=== PATIENT | male | born 1970 ===

== ENCOUNTER 2017-09-24 08:51 | Day surgery (SDC) | payer BC ==
--- NOTE | 2017-09-20 17:46 | Pre-op HX & Phy Repo 2 SIG ---
DATE OF ADMISSION: 09/24/2017 DATE OF SURGERY: 09/24/2017. CHIEF COMPLAINT: Lump in the umbilicus. HISTORY OF PRESENT ILLNESS: This is a 47-year-old male who presented with a lump in the umbilicus for about 4 years. He stated that the lump has gradually enlarged and he complains of occasional discomfort. He stated that the lump is present off and on. PAST MEDICAL HISTORY: he denied allergies, asthma, diabetes, hypertension, cardiac and renal diseases. PAST SURGICAL HISTORY: None. MEDICATIONS: He takes Soma on p.r.n. basis. SOCIAL HISTORY: The patient is a 47-year-old male who is single and father of two children. 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 He denies smoking, but drinks occasionally. REVIEW OF SYSTEMS: Besides the lump of the umbilicus, he complains of back pain. PHYSICAL EXAMINATION: GENERAL: The patient appeared to be a well-developed, well-nourished, 47-year-old male, in no acute distress. VITAL SIGNS: Blood pressure 148/102 and pulse rate 81. HEENT: Head is normocephalic and atraumatic. Eyes, pupils are equal, round, and reactive to light. Mouth is clear. NECK: There is no palpable thyromegaly or adenopathy. CHEST: Clear to auscultation and percussion. HEART: There is no gallop or murmur. S1 and S2 are within normal limits. ABDOMEN: Soft and flat. There is no palpable organomegaly and bowel sounds are audible. He has a partially reducible umbilical hernia of a size of walnut. GENITAL: Deferred. EXTREMITIES: Within normal limits. ASSESSMENT: Incarcerated umbilical hernia. PLAN: The patient has been scheduled for a umbilical herniorrhaphy on 09/24/2017 and the risks and benefits have been explained to him. He understood and granted consent. Batsheva Hoskins M.D. DR: MAUREEN JOB#: [id number] CC: HAYLIE
[~2017-09-24] VITALS: Ht 177.8 cm; Wt 93.0 kg
[2017-09-24] VITALS (11 sets, daily range): BP systolic 130–148; BP diastolic 81–94
[~2017-09-24 08:51] MED LIST: ceFAZolin sod 1 GM in NS 55 ML IVPB ONE
[2017-09-24] MEDS ORDERED: SOMA350 MG PO (09:36)
[2017-09-24] MEDS ORDERED: LR 1000ml ONE (12:00)
[2017-09-24] MEDS ORDERED: Sterile Water Irrig 1000ml IRRIG ONE (12:00)
[2017-09-24] MEDS ORDERED: NS Irrig 1000ml ONE (12:00)
[2017-09-24] MEDS ORDERED: Bupivacaine 0.25% Inj 30ml INJ ONE ×2 (12:05→12:45)
--- NOTE | 2017-09-24 12:06 | Pre-Procedure Note/Attestation ---
Pre-Procedure Note/Attestation Complete Prior to Procedure Planned Procedure: not applicable Procedure Narrative: umbilical herniorrhaphy Indications for Procedure Pre-Operative Diagnosis: umbilical hernia Attestation I attest that I discussed the nature of the procedure; its benefits; risks and complications; and alternatives (and the risks and benefits of such alternatives ), prior to the procedure, with the patient (or the patient's legal food service sales representatives). I attest that, if there was a reasonable possibility of needing a blood transfusion, the patient (or the patient's legal food service sales representatives) was given the [facility] standardized written summary, pursuant to the Panchito Radha Blood Safety Act ([place] Health and Safety Code # 1645, as amended). I attest that I re-evaluated the patient just prior to the surgery and that there has been no change in the patient's H&P, except as documented below: Batsheva Hoskins MD Sep 24, 2017 12:06
[2017-09-24] MEDS ORDERED: Midazolam 2mg/2ml Inj ONE (12:15)
[2017-09-24] MEDS ORDERED: Lidocaine 1% MPF 10mg/ml 5ml ONE (12:16)
[2017-09-24] MEDS ORDERED: Propofol 200mg/20ml IV ONE (12:16)
[2017-09-24] MEDS ORDERED: fentaNYL 100 mcg/2 mL IV ONE (12:16)
[2017-09-24] MEDS ORDERED: LR 1000ml 1,000 ML IVLG SCH (12:48)
--- NOTE | 2017-09-24 12:54 | Anethesia Preoperative Eval ---
Anesthesia Pre-op PMH/ROS General Date of Evaluation: Sep 24, 2017 Time of Evaluation: 12:10 Anesthesiologist: chyna ASA Score: ASA 2 Mallampati Score Class I : Soft palate, uvula, fauces, pillars visible Class II: Soft palate, uvula, fauces visible Class III: Soft palate, base of uvula visible Class IV: Only hard plate visible Mallampati Classification: Class II Surgeon: Aidee Diagnosis: Umbilical hernia Surgical Procedure: Umbelical herniorrhaphy Allergies: Coded Allergies: No Known Allergies (Unverified , 09/24/17) Past Medical History Cardiovascular: Reports: HTN; Denies: CAD, OK, valve dz, arrhythmia, other Pulmonary: Denies: asthma, COPD, SALO, other Gastrointestinal/Genitourinary: Denies: GERD, CRI, ESRD, other Neurologic/Psychiatric: Denies: dementia, CVA, depression/anxiety, TIA, other Endocrine: Denies: DM, hypothyroidism, steroids, other HEENT: Denies: cataract (L), cataract (R), glaucoma, TUNUNAK (L), TUNUNAK (R), other Hematology/Immune: Denies: anemia, DVT, bleeding disorder, other Musculoskeletal/Integumentary: Denies: OA, RA, DJD, DDD, edema, other PMH Narrative: HTN (currently untreated) PSxH Narrative: Denies Anesthesia Pre-op Phys. Exam Physician Exam Last Vital Signs Date Time Temp Pulse Resp B/P (MAP) Pulse Ox O2 Delivery O2 Flow Rate FiO2 09/24/17 09:28 97.6 80 18 135/92 (106) 96 97.6 09/24/17 09:28 Room Air Constitutional: NAD Neurologic: CN 2-12 intact Cardiovascular: RRR, no M/R/G Respiratory: CTA Gastrointestinal: S/NT/ND Airway Exam Mallampati Score: Class II MO: full ROM: full Teeth: intact Anesthesia Pre-op A/P Risk Assessment & Plan Assessment: Hypertensive male for umbilical hernia repair Plan: GA, LMA Status Change Before Surgery: No Pre-Antibiotics Drug: Ancef Given Within 1 Hr of Incision: Yes Time Given: 12:30 Panchito Padilla MD Sep 24, 2017 12:54
[2017-09-24] MEDS ORDERED: Meperidine 50mg/ml Inj(FOR RIGORS ONLY) IVP PRN (13:00)
[2017-09-24] MEDS ORDERED: DiphenhydrAMINE 50mg/ml Inj IVP PRN (13:00)
[2017-09-24] MEDS ORDERED: Labetalol 5mg/ml 20ml vial IV PRN (13:00)
--- NOTE | 2017-09-24 13:38 | Brief Operative Note ---
Immediate Post Operative Note Operative Note Pre-op Diagnosis: umbilical hernia Procedure: Umbilical herniorrhaphy Post-op Diagnosis: same as pre-op Findings: consistent w/pre-op dx studies Surgeon: MD Codey Sewer Pipe Layer Helper: none Anesthesiologist: Dr. Velasco Anesthesia: general Specimen: none Complications: none Condition: stable Fluids: per anesthesiologist Estimated Blood Loss: minimal Drains: none Implant(s) used?: Yes Batsheva Hoskins MD Sep 24, 2017 13:38
--- NOTE | 2017-09-24 13:39 | Discharge Instructions ---
Discharge Instructions Discharge Instructions Follow up with: my office one week Diet: regular Resume Normal Activity?: Yes Activity: as tolerated For Surgical Patients Clean and Dry: other - leave alone May shower: Yes For Congestive Heart Failure Reminder Report to your physician any weight gain of 5 pounds or more in one week. Batsheva Hoskins MD Sep 24, 2017 13:39
--- NOTE | 2017-09-24 13:51 | Immediate Post-Op Evaluation ---
Immediate Post-Op Evalulation Immediate Post-Op Evalulation Procedure: Umbilical hernia repair Date of Evaluation: Sep 24, 2017 Time of Evaluation: 13:56 IV Fluids: 1100 Blood Pressure Systolic: 130 Blood Pressure Diastolic: 85 Pulse Rate: 81 Respiratory Rate: 12 O2 Sat by Pulse Oximetry: 100 Temperature (Fahrenheit): 99.0 Pain Score (1-10): 0 Nausea: No - 0 Vomiting: No - 0 Complications No complication Patient Status: awake, patent, none Hydration Status: adequate Drug: Ancef Given Within 1 Hr of Incision: Yes Time Given: 12:30 Panchito Padilla MD Sep 24, 2017 13:51
--- NOTE | 2017-09-24 13:52 | 48 Hour Post Anesthesia Eval ---
Post Anesthesia Evaluation Procedure: Umbilical hernia repair Date of Evaluation: Sep 24, 2017 Time of Evaluation: 14:20 Blood Pressure Systolic: 138 0: 86 Pulse Rate: 78 Respiratory Rate: 12 O2 Sat by Pulse Oximetry: 98 Airway: patent Nausea: No Vomiting: No Pain Intensity: 0 Hydration Status: adequate Cardiopulmonary Status: Stable Mental Status/LOC: patient returned to baseline Follow-up Care/Observations: As per surgery Post-Anesthesia Complications: No anesthetic complication Follow-up care needed: N/A Panchito Padilla MD Sep 24, 2017 13:52
[2017-09-24] MEDS ORDERED: Norco 5mg/325mg tab ORAL SCH (15:30)
--- NOTE | 2017-09-24 22:00 | Operative Note - Dictated ---
DATE OF OPERATION: 09/24/2017 PREOPERATIVE DIAGNOSIS: Incarcerated umbilical hernia. POSTOPERATIVE DIAGNOSIS: Incarcerated umbilical hernia. OPERATION: 1. Umbilical herniorrhaphy with application of mesh plug. 2. Reconstruction of the umbilicus. COMPLICATION: None. SURGEON: Batsheva Hoskins M.D. EMERGENCY MAN: None. ANESTHESIA: General. ANESTHESIOLOGIST: Panchito Padilla M.D. INDICATION: This is a 47-year-old, male, who presented with pain and lump in the umbilicus for about 4 years. The lump has gradually enlarged and it is present all the time. Besides, he complains of occasional discomfort in his umbilicus. Physical examination showed an irreducible umbilical hernia at the size of a walnut. DESCRIPTION OF PROCEDURE: The patient was placed supine on the operating table and after general anesthesia, the abdomen was properly prepped and draped. A curved incision was given below the umbilicus and was carried sharply through subcutaneous tissue and the hernia sac was reached and was gradually dissected and isolated. This hernia consisted of a large amount of preperitoneal fat. The hernia was completely dissected and isolated and then it was inverted in the retroperitoneal space. The defect in the fascia was exposed, which was about 1 inch in diameter. The fascia around the defect was isolated [address] around. A large mesh plug was selected and was placed in the defect in the fascia and this plug was secured in place with multiple interrupted sutures of 0 Prolene. After the application of the plug, the incision was thoroughly irrigated with antibiotic solution and was infiltrated with total of 50 mL of Marcaine 0.25%. After this, the defect in the fascia was obliterated in transverse fashion over the plug with running suture of #1 Prolene. After the repair, the umbilicus was reconstructed with application of multiple interrupted sutures of 2-0 Vicryl between the fascia and the base of the umbilicus. The subcutaneous tissue was approximated in 2 layers with 3-0 plain catgut and the skin incision was approximated with running subcuticular suture of 4-0 chromic. The patient tolerated the procedure very well and was transferred to recovery room in stable condition and extubated. The sponge and needle count correct. Estimated blood loss 5 mL. Condition of the patient at the end of procedure is stable. Batsheva Hoskins M.D. DR: MAUREEN JOB#: [id number] CC:
== END 2017-09-24 15:45 | disposition home or self-care (01) ==
LOC: SUR 08:51
DX: K42.0 Umbilical hernia with obstruction, without gangrene (principal); I10 Essential (primary) hypertension
CPT/HCPCS: 49587; C1781; J0690; J2175; J2250; J2405; J2704; J3010; J3490; J7120; 94003; 94150